=== PATIENT | male | born 1990 | race Caucasian/White ===

== ENCOUNTER 2018-04-09 18:48 | Emergency (ER) | payer OTHER ==
[~2018-04-09] VITALS: Ht 167.6 cm; Wt 61.4 kg
[2018-04-09] MEDS ORDERED: IBUPROFEN 600 MG TABLET PO ONE (20:00)
[2018-04-09] MEDS ORDERED: PERTUSS(ACELL),DIPH,TET VAC/PF 0.5 ML VIAL IM ONE (20:00)
[2018-04-09 20:28] VITALS: BP 135/82
== END 2018-04-09 20:30 | disposition home or self-care (01) ==
LOC: EMS 18:52
DX: S01.512A Laceration without foreign body of oral cavity, initial encounter (principal); R03.0 Elevated blood-pressure reading, without diagnosis of hypertension; W22.8XXA Striking against or struck by other objects, initial encounter; Y93.89 Activity, other specified; Y92.69 Other specified industrial and construction area as the place of occurrence of the external cause; Y99.0 Civilian activity done for income or pay
CPT/HCPCS: 90471; 90715; 99283